=== PATIENT | female | born 1945 | race Caucasian/White ===

== ENCOUNTER → 2019-05-16 14:17 | Outpatient (BNVA) | payer MEDICARE, BC, SELFPAY | PROVIDERS: Family Provider Family Medicine; PCP Family Medicine; Visit Provider Family Medicine | DX: N39.0 Urinary tract infection, site not specified (principal); I10 Essential (primary) hypertension; M54.10 Radiculopathy, site unspecified | CPT/HCPCS: 81003 ==

== ENCOUNTER → 2019-08-15 14:34 | Outpatient (BNVA) | payer MEDICARE, BC, SELFPAY | PROVIDERS: Family Provider Family Medicine; PCP Family Medicine; Visit Provider Family Medicine | DX: I10 Essential (primary) hypertension (principal); E78.2 Mixed hyperlipidemia; M48.061 Spinal stenosis, lumbar region without neurogenic claudication; M54.16 Radiculopathy, lumbar region; L82.1 Other seborrheic keratosis; M79.89 Other specified soft tissue disorders | CPT/HCPCS: 80053; 80061; 85025 ==

== ENCOUNTER → 2019-12-12 13:19 | Outpatient (BNVA) | payer MEDICARE, BC, SELFPAY | PROVIDERS: Family Provider Family Medicine; PCP Family Medicine; Visit Provider Family Medicine | DX: N39.0 Urinary tract infection, site not specified (principal) | CPT/HCPCS: 81000; 87086 ==

== ENCOUNTER → 2020-04-15 11:42 | Outpatient (BNVA) | payer MEDICARE, BC, SELFPAY | PROVIDERS: Family Provider Family Medicine; PCP Family Medicine; Visit Provider Internal Medicine Cardiovascular Disease | DX: I10 Essential (primary) hypertension (principal); R06.02 Shortness of breath; E78.2 Mixed hyperlipidemia; I25.10 Atherosclerotic heart disease of native coronary artery without angina pectoris; M79.89 Other specified soft tissue disorders; G47.33 Obstructive sleep apnea (adult) (pediatric) | CPT/HCPCS: 80048; 80061 ==

== ENCOUNTER 2020-06-21 02:30 | Inpatient (IN) | payer MEDICARE, BC, SELFPAY ==
[2020-06-21] VITALS (10 sets, daily range): BP systolic 115–136; BP diastolic 53–79; PULSE 70–105; RESP 16–20; TEMP 36.6–37.2; O2SAT 92–96; BMI 38.1
--- NOTE | 2020-06-21 03:37 | ECG_ITS ---
[facility] ED Test Date: 2020-06-21 Pat Name: Delores Keyes Department: Room: 253 Gender: Female Shredder Operator: : 1945 Requested By: Zak Kulkarni Order Number: [id number] Juni MD: Tamra Conway M.D. Measurements Intervals [place] Rate: 89 P: 37 MT: 159 QRS: 17 QRSD: 109 T: 261 QT: 351 QTc: 427 Interpretive Statements SINUS RHYTHM MODERATE T-WAVE ABNORMALITY, CONSIDER INFERIOR ISCHEMIA [-0.1+ mV T WAVE IN II/aVF] Compared to ECG 03/05/2017 14:25:13 Sinus tachycardia no longer present Left-axis deviation no longer present Myocardial infarct finding no longer present T-wave abnormality still present Possible ischemia still present Electronically Signed On 06-23-2020 10:56:07 CDT by Tamra Conway M.D. [id number]
--- NOTE | 2020-06-21 03:38 | P.HP_ITS ---
Providers/Chief Complaint Admitting Physician: Zak Kulkarni MD Primary Care Provider: Wendy Otero MD Chief Complaint: Lower GI Bleed History of Present Illness Delores Keyes is a 75 year old female who has history of hemorrhoids, diverticulosis presented today after chief complaint of emesis and bright bleed per rectum. Patient is stating that yesterday she went to nutrition clinic where she had corn and cake and then afterwards went for grocery shopping, doing shopping she had abdominal cramps and sensation that she had to go to the bathroom and felt nauseous. She experienced 1 episode of emesis, projectile, she was feeling sick to her stomach, had 1 bowel movement which was fresh bleed per rectum, she updated her daughter about her condition, and then slept for ab out 3 hours because she was feeling very tired and lethargic. When she woke up she went to the kitchen and started working on her curtains while waiting to fix ice cream and soda for herself. Again, she experienced abdominal cramps and had a large bowel movement while standing in the kitchen and this time blood clots came out, they were about 3 cm long, she called her daughter who sent her to the hospital for further evaluation. She went to [place] [facility], she was hypertensive and tachycardic in upper 90s, afebrile, did not experience recurrence of symptoms, hemoglobin 10, do not have BMP or CT abdomen pelvis because they could not get creatinine level on her She was transferred to our facility for overnight monitoring and possible colonoscopy, at the time of my evaluation she was able to mention above HPI Review of Systems Const: Reports: chills, body aches and fatigue; Denies: fever(s) Eyes: Denies: change in vision ENMT: Denies: throat pain Card: Denies: chest pain Resp: Denies: dyspnea GI: Reports: abdominal pain, nausea, vomiting, diarrhea and hematochezia : Denies: flank pain Musc: Denies: neck pain Skin/Breast: Denies: rash Neuro: Denies: headache(s) Psych: Denies: anxiety Endo: Denies: polyuria Kennedy/Lymph: Denies: easy bruising All/Imm: Denies: urticaria Medications/Allergies Home Medications Medication Instructions Recorded Confirmed Last Taken Type potassium gluconate 595 mg (99 mg) 595 mg PO DAILY tab 01/15/20 03/04/21 Unknown History tablet furosemide 40 mg tablet 20 mg PO QAM PRN #90 tab 09/19/19 05/09/20 Unknown Rx triamterene 37.5 1 cap PO DAILY #90 cap 03/11/20 05/09/20 Unknown Rx mg-hydrochlorothiazide 25 mg capsule losartan 100 mg tablet 100 mg PO DAILY 90 Days #90 tab 05/05/20 05/09/20 Unknown Rx rosuvastatin 20 mg tablet 20 mg PO DAILY #90 tab 05/09/20 05/09/20 Unknown Rx sulfamethoxazole 800 1 tab PO BID #60 tab 05/09/20 05/09/20 Unknown Rx mg-trimethoprim 160 mg tablet diclofenac sodium 75 mg 75 mg PO BID #60 tab 06/13/20 Unknown Rx tablet,delayed release docusate sodium 100 mg capsule 100 mg PO DAILY 90 Days #100 cap 06/13/20 Unknown Rx metformin 500 mg tablet,extended 500 mg PO BID 90 Days #180 tab 06/13/20 Unknown Rx release 24 hr nifedipine 90 mg tablet,extended 90 mg PO DAILY #90 tab 06/13/20 Unknown Rx release 24 hr nitroglycerin 6.5 mg 6.5 mg PO TID #270 cap 06/13/20 Unknown Rx capsule,extended release Allergies Allergy/AdvReac Type Severity Reaction Status Date / Time acetaminophen [From Haugen] Allergy UNKNOWN Verified 05/09/20 10:28 atenolol Allergy UNKNOWN Verified 05/09/20 10:28 atorvastatin [From Lipitor] Allergy UNKNOWN Verified 05/09/20 10:28 ciprofloxacin [From Cipro] Allergy UNKNOWN Verified 05/09/20 10:28 diphenhydramine Allergy UNKNOWN Verified 05/09/20 10:28 [From Benadryl] hydralazine Allergy UNKNOWN Verified 05/09/20 10:28 hydrocodone [From Haugen] Allergy UNKNOWN Verified 05/09/20 10:28 Iodinated Contrast Media Allergy UNKNOWN Verified 05/09/20 10:28 isosorbide [From Imdur] Allergy UNKNOWN Verified 05/09/20 10:28 levofloxacin [From Levaquin] Allergy UNKNOWN Verified 05/09/20 10:28 nystatin [From Mycolog II] Allergy UNKNOWN Verified 05/09/20 10:28 quinapril [From Accupril] Allergy UNKNOWN Verified 05/09/20 10:28 triamcinolone Allergy UNKNOWN Verified 05/09/20 10:28 [From Mycolog II] PFSH Acute PFSH: Medical History ASHD (arteriosclerotic heart disease) COPD (chronic obstructive pulmonary disease) Diabetes Esophagitis Essential hypertension, benign Hyperlipidemia Hypertension Leg swelling Osteoarthritis Shortness of breath Sleep apnea Spinal stenosis of lumbar region with radiculopathy Surgical History H/O hemorrhoidectomy H/O: hysterectomy H/O: knee surgery History of appendectomy History of bladder surgery History of non-cataract eye surgery History of rectal surgery Hx of cataract surgery Hx of cholecystectomy Hx of hernia repair Hx of repair of rotator cuff Family History Mother CAD (coronary artery disease) Dementia Diabetes Stroke Father Cancer Brother Chronic kidney disease (CKD) Denies family history of Clotting disorder Suicide Anesthesia complication Bleeding disorder Lung disease Social History Second hand smoke exposure: No Alcohol intake: never Desire information about alcohol rehabilitation?: No Counseling given: No Desire information about substance/drug rehabilitation?: No Counseling given: No Physical Exam Narrative: EXAM NARRATIVE: Very pleasant and cooperative female who is laying comfortably in her bed S1, S2 no tachycardia or signs of heart failure Morbid obesity Clinically does not look dehydrated or fluid overloaded Low symmetry no edema gangrene ulcer Abdomen soft nontender no signs of peritonitis Bilateral breath sounds no audible wheezing stridor or rhonchi EOMI, PERRLA No neurological deficit No joint swelling, nonpitting lower extremity edema A&P Assessment and plan (1) Lower GI bleed: Status: Acute (2) Hematochezia: Status: Acute (3) Radiculopathy of leg: Status: Acute (4) Sleep apnea: Status: Acute Qualifiers: Sleep apnea type: obstructive Qualified Code(s): G47.33 - Obstructive sleep apnea (adult) (pediatric) Additional A&P Information Bright bleed per rectum/hematochezia Hemoglobin 10, previous hemoglobin 14 reported August 25 Will obtain CBC and BMP on stat basis, diverticular versus hemorrhoidal bleed Abdomen soft no signs of peritonitis, will check lactic acid, mild leukocytosis noted on CBC from outside record N.p.o. H&H every 6 hours Keep her on maintenance fluid Will need colonoscopy, patient endorsing history of hemorrhoids and diverticulosis, no history of cancer She is not on any anticoagulants, no history of alcohol liver cirrhosis, hepatitis or liver cirrhosis Kindly consult general surgery in the morning for colonoscopy, no urgent indication overnight Obstructive sleep Overnight out of CPAP Hypertension: Currently hypotensive, I will hold losartan hydrochlorothiazide unless I know her kidney function level, continue nifedipine Clear liquid diet SCDs for DVT prophylaxis Full code Attestations Medical Necessity Statement*: Anticipating discharge in less than 48 hours overnight monitoring needed for hematochezia most likely diverticular/hemorrhoid bleed Time Spent in Patient Care: 40mins Coding Level of Care Code Acute Clinical Laboratory Science Professor for Jessica Rodriguez Diagnoses Lower GI bleed K92.2 Hematochezia K92.1 Radiculopathy of leg M54.10 Sleep apnea G47.33 Sleep apnea type: obstructive
[2020-06-21] MEDS: sodium chloride 0.9% 1,000 ML 30 ML IV (05:03)
[2020-06-21] MEDS: pantoprazole 40 mg SDV IVP ×2 (05:07→17:14)
[2020-06-21 08:48] LABS: Basophils % 0.4 %; Eosinophils % 0.3 %; Hematocrit 25.6 % (37.0-47.0); Hemoglobin 8.1 g/dL (11.5-15.3); Lymphocytes % 17.4 %; Mean Corpuscular HGB Conc 31.6 g/dL (30.0-36.0); Mean Corpuscular Hemoglobin 29.1 pg (28.0-34.0); Mean Corpuscular Volume 92.1 fL (81-99); Mean Platelet Volume 9.5 fL (7.4-10.4); Monocytes # 0.5 10^3/uL (0.2-0.9); Monocytes % 4.4 %; Neutrophils % 77.1 %; Nucleated Red Blood Cells % 0 %; Platelet Count 342 10^3/cmm (130-400); Red Blood Count 2.78 10^6/uL (4.1-5.3); Red Cell Distribution Width 13.1 % (12.1-15.1); White Blood Count 11.4 10^3/uL (4.0-10.0)
--- NOTE | 2020-06-21 08:59 | CT_ITS ---
WS: [id number] CT scan of the abdomen and pelvis with Oral . Additional two-dimensional coronal and sagittal reconst ruction was performed. 06/21/2020 Clinical Data: BRBPR Comparison: CT abdomen and pelvis, 12/13/2015. DLP: 1669.[address] scans at [facility] use at least one of these dose optimization techniques: automat ed exposure control; mA and/or kV adjustment per patient size (includes targeted exams where dose is matched to clinical indication); or iterative reconstruction. Findings: The lower lungs show no nodules, masses or effusions. The liver, spleen, adrenal glands and pancreas are normal. There are clips in the gallbladder fossa f rom a cholecystectomy. The kidneys show no cysts, masses, hydronephrosis or renal calculi. The abdominal aorta is normal in size with calcification in the wall.. No appendicitis or diverticulitis is seen. Oral contrast is in the stomach and small bowel and there is no bowel dilatation. There is an umbilical hernia which contains small bowel. The orifice of the h ernia 6.3 cm. The bladder is unremarkable. The uterus is absent. No inguinal hernia is seen. The bones of the lower thorax, lumbar spine, pelvis, and hips show degenerative change of the lower t horacic and all the lumbar vertebral bodies. CT/CT abdomen pelvis wo con [id number] Impression: 1. Umbilical hernia containing small bowel with no evidence of strangulation. 2. Negative for acute intra-abdominal or pelvic abnormalities.
[2020-06-21 09:02] LABS: Anion Gap 13.5 (5-19); Blood Urea Nitrogen 18 mg/dL (8-23); Calcium 8.4 mg/dL (8.5-10.5); Carbon Dioxide 27 mmol/L (22-29); Chloride 103 mmol/L (98-107); Glucose 197 mg/dL (65-115); Lactate (Lactic Acid level) 2.7 mmol/L (0.5-2.2); Osmolality Calculated 297 mOsm/kg (285-295); Potassium 3.5 mmol/L (3.5-5.1); Sodium 140 mmol/L (136-145)
[2020-06-21] MEDS: barium sulfate 450 mL Oral Susp PO (09:18)
--- NOTE | 2020-06-21 09:27 | PC.PHAR ---
PT STATES SHE TAKES CARE OF HER OWN MEDICATIONS-PT BROUGHT IN A MED LIST SOMETHINGS PT HAD ON LIST DIDNT MATCH WHAT HAD BEEN FILLED AND WHAT THE PT VERIFIED-PT STATES SHE HAS A QVAR INHALER-EXT MED HISTORY DOESNT SHOW THIS MEDICATION-EXT MED HISTORY SHOWS LASIX LAST FILLED 40MG PO QAM PRN-PT STATES SHE ONLY TAKES 1/2 (20MG) TAB QAM PRN-EXT MED HISTORY SHOWS LOSARTAN LAST FILLED ON 06/02/20 30D/S 100MG PO DAILY-PT STATES SHE TAKES 50MG QAM PRN-EXT MED HISTORY SHOWS METFORMIN ER 500MG LAST FILLED ON 03/05/20 90D/S 500MG PO BID-PTS LIST BROUGHT IN HAS 1000MG TAKES 500MG BID-BUT PT STATES SHE TAKES WHAT PILL WAS FILLED LAST AND TAKES A HALF OF THAT TAB SO 250MG BID-PT STATES SHE TAKES BACTRIM DS PRN-EXT MED HISTORY SHOWS LAST FILLED ON 05/09/20 30D/S
--- NOTE | 2020-06-21 10:40 | P.PN_ITS ---
Subjective Subjective: Interval history: Patient was seen and examined this morning deny any abdominal pain, nausea, vomiting,fever. Currently tolerating CLD. Her other vitals and labs have been review. Vitals/I&O/Wt Last Vital Signs Temp 97.9 F 06/21/20 07:24 Pulse 80 06/21/20 07:24 Resp 17 06/21/20 07:24 BP 115/74 06/21/20 07:24 Pulse Ox 92 06/21/20 07:24 06/20/20 06/21/20 06/21/20 22:59 06:59 14:59 Intake Total 500 / 500 Output Total 300 / 300 Balance -300 / -300 500 / 500 Weight last 48 hrs Weight 91.535 kg Physical Exam Const: COMMON NORMALS: patient oriented x3 HENMT: COMMON NORMALS: normocephalic and atraumatic HEAD & SCALP: normocephalic and atraumatic Chest: CHEST: Yes Symmetrical chest wall rise Resp: COMMON NORMALS: clear to auscultation bilaterally EFFORT & INSPECTION: Yes symmetric chest movement AUSCULTATION: clear to auscultation bilaterally Cardio: COMMON NORMALS: regular rate, regular rhythm, S1 normal heart sound present, S2 normal heart sound present, No gallops present (Cardio), No murmurs present (Cardio), No rub (Cardio) and Peripheral pulses 2+ throughout RATE: regular rate RHYTHM: regular rhythm HEART SOUNDS: S1 normal heart sound present and S2 normal heart sound present PERIPHERAL PULSES: Peripheral pulses 2+ throughout GI: COMMON NORMALS: Normal to inspection, nondistended, normoactive bowel sounds present, Soft to palpation, non-tender, No hepatosplenomegaly present and no masses AUSCULTATION: Yes normoactive bowel sounds PALPATION: Yes Soft to palpation and Yes No hepatosplenomegaly present RECTAL EXAM: deferred Extremity: COMMON NORMALS: no clubbing, cyanosis or edema and no pedal edema Neuro: COMMON NORMALS: patient oriented x3 Data : 06/21/20 17:25 06/21/20 08:28 A&P Assessment and plan (1) Lower GI bleed: She was admitted with chief complaint of bright red blood per rectum started yesterday. Currently on CLD Protonix 40 mg IV every 12 hours I.V Hydration Monitor CBC Q12 H DAILY C.T abdomen and Pelvis : Negative for acute intra-abdominal or pelvic abnormalities. Transfusion2 U PRBC Monitor CBC Status: Acute (2) Hematochezia: Status: Acute (3) Radiculopathy of leg: Status: Acute (4) Sleep apnea: Status: Acute Qualifiers: Sleep apnea type: obstructive Qualified Code(s): G47.33 - Obstructive sleep apnea (adult) (pediatric) Additional A&P Information Bright bleed per rectum/hematochezia Hemoglobin 10, previous hemoglobin 14 reported August 25 Will obtain CBC and BMP on stat basis, diverticular versus hemorrhoidal bleed Abdomen soft no signs of peritonitis, will check lactic acid, mild leukocytosis noted on CBC from outside record N.p.o. H&H every 6 hours Keep her on maintenance fluid Will need colonoscopy, patient endorsing history of hemorrhoids and diverticulosis, no history of cancer She is not on any anticoagulants, no history of alcohol liver cirrhosis, hepatitis or liver cirrhosis Kindly consult general surgery in the morning for colonoscopy, no urgent indication overnight Obstructive sleep Overnight out of CPAP Hypertension: Currently hypotensive, I will hold losartan hydrochlorothiazide unless I know her kidney function level, continue nifedipine Clear liquid diet SCDs for DVT prophylaxis Full code Attestations Medical Necessity Statement*: Patient needs to be in hospital for the management of G.I Bleed. Coding Level of Care Code Acute Audio Visual Arts Director for Jessica Rodriguez Diagnoses Lower GI bleed K92.2 Hematochezia K92.1 Radiculopathy of leg M54.10 Sleep apnea G47.33 Sleep apnea type: obstructive
[2020-06-21 11:29] LABS: Glucose Point of Care 117 mg/dL (70-110)
[2020-06-21] MEDS: dextrose 5%-sod chloride 0.45% 1,000 ML 50 ML IV (12:11)
--- NOTE | 2020-06-21 12:44 | PC.RESP ---
Pulmonary Rehab information sent to patient
--- NOTE | 2020-06-21 13:14 | PC.CHAP ---
Pastoral Care Encounter/Spiritual Assessment Type of Contact [] Declined executive vice president and chief operating officer visit [] Patient/Family/Request visit [] Outpatient visit [] Follow-up visit [] Physician referral [] Code/Alert [] Routine visit [] Staff referral [] Actively dying [] Patient sleeping [] Family support [] [xx] Out of room [] Palliative care [] [] Receiving care in room [] Pre-surgical visit [] Trauma [] Long length of stay [] ICU visit [xx] Other: Patient just removed to get CT scan. Will be gone awhile. Relational/Emotional Strength [] Patient feels connected with others/family/visitors/staff [] Distress [] Loneliness/isolation [] Abandonment Spirituality of Patient [] Person of Jennifer [] Attends Druze of their Jennifer [] Believes in Prayer [] Reads Bible or Mandaeism materials [] There are Spiritual issues to be addressed Transportation Modeler Interventions [] Prayer [] Active listening [] Non-anxious presence [] Spiritual/emotional support [] Crisis/trauma care [] Spiritual counseling [] Bereavement support [] Provided bereavement packet [] Provided Bible/devotional materials [] Provided toy/stuffed animal, coloring book to patient or family member [] Provided Communion [] Anointing/[place] [] Salvation [] Completed spiritual assessment [] Other: Impact on Illness or Injury [] Angry [] Fearful [] Anxious [] Often cries [] Exhaustion [] Unable to work [] Unable to attend tenriism [] Unable to walk/stand [] Unable to read [] Unable to drive [] Unable to eat/drink [] Unable to sleep [] Unable to be with family [] Patient intubated [] Other: Summary Follow up needed Time spent with patient
[2020-06-21 16:47] LABS: Glucose Point of Care 143 mg/dL (70-110)
[2020-06-21] MEDS: NIFEdipine ER (24 hr) 30 mg Tablet 90 MG PO (17:12)
[2020-06-21 17:33] LABS: Basophils % 0.4 %; Eosinophils # 0.1 10^3/uL (0.0-0.8); Eosinophils % 0.4 %; Hematocrit 23.4 % (37.0-47.0); Hemoglobin 7.5 g/dL (11.5-15.3); Lymphocytes # 2.3 10^3/uL (0.8-4.8); Lymphocytes % 20.5 %; Mean Corpuscular HGB Conc 32.1 g/dL (30.0-36.0); Mean Corpuscular Hemoglobin 29.3 pg (28.0-34.0); Mean Corpuscular Volume 91.4 fL (81-99); Mean Platelet Volume 9.3 fL (7.4-10.4); Monocytes # 0.6 10^3/uL (0.2-0.9); Monocytes % 4.9 %; Neutrophils % 73.4 %; Nucleated Red Blood Cells % 0 %; Platelet Count 327 10^3/cmm (130-400); Red Blood Count 2.56 10^6/uL (4.1-5.3); Red Cell Distribution Width 13.2 % (12.1-15.1); White Blood Count 11.3 10^3/uL (4.0-10.0)
--- NOTE | 2020-06-21 18:21 | PC.NURSE ---
pt had a moderate bowel movement today. it was bloody. pt reported no pain and no N/V
[2020-06-21 21:02] LABS: Glucose Point of Care 154 mg/dL (70-110)
[2020-06-22] VITALS (19 sets, daily range): BP systolic 107–140; BP diastolic 53–83; PULSE 71–90; RESP 16–19; TEMP 36.4–37.4; O2SAT 91–97
[2020-06-22] MEDS: sodium chloride 0.9% (100 ml) 100 ML 150 ML (01:47)
[2020-06-22] MEDS: pantoprazole 40 mg SDV IVP ×2 (03:18→15:59)
[2020-06-22] MEDS: sodium chloride 0.9% (100 ml) 100 ML (03:20)
[2020-06-22 06:43] LABS: Glucose Point of Care 127 mg/dL (70-110)
[2020-06-22 06:58] LABS: Hematocrit 30.2 % (37.0-47.0); Hemoglobin 9.6 g/dL (11.5-15.3); Mean Corpuscular HGB Conc 31.8 g/dL (30.0-36.0); Mean Corpuscular Hemoglobin 29.4 pg (28.0-34.0); Mean Corpuscular Volume 92.4 fL (81-99); Mean Platelet Volume 9.5 fL (7.4-10.4); Platelet Count 306 10^3/cmm (130-400); Red Blood Count 3.27 10^6/uL (4.1-5.3); Red Cell Distribution Width 13.4 % (12.1-15.1); White Blood Count 11.4 10^3/uL (4.0-10.0)
[2020-06-22 07:40] LABS: Anion Gap 13.3 (5-19); Blood Urea Nitrogen 14 mg/dL (8-23); Calcium 8.3 mg/dL (8.5-10.5); Carbon Dioxide 23 mmol/L (22-29); Chloride 106 mmol/L (98-107); Ferritin 131 ng/mL (15-150); Glucose 113 mg/dL (65-115); Iron 165 ug/dL (37-145); Osmolality Calculated 289 mOsm/kg (285-295); Percent Saturation 70.2 % (20-50); Potassium 3.3 mmol/L (3.5-5.1); Sodium 139 mmol/L (136-145); Total Iron Binding Capacity 235 mcg/dl; Transferrin 198 mg/dL (200-360); Unsaturated Iron Binding 70 ug/dL (112-347)
[2020-06-22] MEDS: lidocaine 1% 5 ML in potassium chloride premix 100 ML 50 ML IV (09:19)
--- NOTE | 2020-06-22 10:30 | PC.CHAP ---
Pastoral Care Encounter/Spiritual Assessment Type of Contact [] Declined dental instructor visit [] Patient/Family/Request visit [] Outpatient visit [x] Follow-up visit [] Physician referral [] Code/Alert [] Routine visit [] Staff referral [] Actively dying [] Patient sleeping [] Family support [] [] Out of room [] Palliative care [] [] Receiving care in room [] Pre-surgical visit [] Trauma [] Long length of stay [] ICU visit [] Other: Relational/Emotional Strength [x] Patient feels connected with others/family/visitors/staff [] Distress [] Loneliness/isolation [] Abandonment Spirituality of Patient [x] Person of Jennifer [x] Attends Roman Catholic of their Jennifer [x] Believes in Prayer [x] Reads Bible or Taoism materials [] There are Spiritual issues to be addressed Chemical Engineering Technician Interventions [x] Prayer [x] Active listening [x] Non-anxious presence [x] Spiritual/emotional support [] Crisis/trauma care [] Spiritual counseling [] Bereavement support [] Provided bereavement packet [] Provided Bible/devotional materials [] Provided toy/stuffed animal, coloring book to patient or family member [] Provided Communion [] Anointing/[place] [] Salvation [x] Completed spiritual assessment [] Other: Impact on Illness or Injury [] Angry [] Fearful [] Anxious [] Often cries [] Exhaustion [] Unable to work [] Unable to attend holiness [] Unable to walk/stand [] Unable to read [] Unable to drive [] Unable to eat/drink [] Unable to sleep [] Unable to be with family [] Patient intubated [] Other: Summary Son was in room when dental instructor arrived. He stated he has not been staying but his sister has. Both expressed deep jennifer and requested prayer. Pt not expecting to go home for a little while. Medical staff still attempting to address issues which resulted in her admission. Time spent with patient 15m
[2020-06-22 10:39] LABS: Absolute Neutrophil 8.9 10^3/cmm (1.4-6.5); Absolute Segmented Neutrophil 8.7 10/cmm (1.6-7.1); Band Neutrophils Absolute 0.2 10^3/cmm (0.0-1.2); Eosinophils 0 %; Lymphocytes 22 %; Lymphocytes Absolute 2.5 10^3/cmm (1.2-3.4); Platelet Estimate Normal (Normal); Segmented Neutrophils 76 %; Total Cells Counted 100 (0-100)
[2020-06-22 10:43] LABS: Glucose Point of Care 176 mg/dL (70-110)
[2020-06-22] MEDS: ondansetron 2 mg/ML SDV 2 mL 4 MG IVP (10:47)
--- NOTE | 2020-06-22 12:01 | PM.PN ---
Subjective Subjective: Interval history: Patient was seen and examined this morning deny any abdominal pain, vomiting,fever. She was nauseous today in am. received I.V Zofran and responded well. Currently tolerating CLD.No BM today Her other vitals and labs have been reviewed. Vitals/I&O/Wt Last Vital Signs Temp 98.5 F 06/22/20 11:38 Pulse 75 06/22/20 11:38 Resp 18 06/22/20 11:38 BP 129/75 06/22/20 11:38 Pulse Ox 91 06/22/20 11:38 06/21/20 06/22/20 06/22/20 22:59 06:59 14:59 Intake Total 500 / 1500 1020 / 2520 1442.5 / 1442.5 Output Total 600 / 900 Balance 500 / 1200 420 / 1620 1442.5 / 1442.5 Weight last 48 hrs Weight 96.026 kg Weight 91.535 kg Physical Exam Const: COMMON NORMALS: patient oriented x3 HENMT: COMMON NORMALS: normocephalic and atraumatic HEAD & SCALP: normocephalic and atraumatic Chest: CHEST: Yes Symmetrical chest wall rise Resp: COMMON NORMALS: clear to auscultation bilaterally EFFORT & INSPECTION: Yes symmetric chest movement AUSCULTATION: clear to auscultation bilaterally Cardio: COMMON NORMALS: regular rate, regular rhythm, S1 normal heart sound present, S2 normal heart sound present, No gallops present (Cardio), No murmurs present (Cardio), No rub (Cardio) and Peripheral pulses 2+ throughout RATE: regular rate RHYTHM: regular rhythm HEART SOUNDS: S1 normal heart sound present and S2 normal heart sound present PERIPHERAL PULSES: Peripheral pulses 2+ throughout GI: COMMON NORMALS: Normal to inspection, nondistended, normoactive bowel sounds present, Soft to palpation, non-tender, No hepatosplenomegaly present and no masses AUSCULTATION: Yes normoactive bowel sounds PALPATION: Yes Soft to palpation and Yes No hepatosplenomegaly present RECTAL EXAM: deferred Extremity: COMMON NORMALS: no clubbing, cyanosis or edema and no pedal edema Neuro: COMMON NORMALS: patient oriented x3 Data : 06/22/20 06:34 06/22/20 06:34 A&P Assessment and plan (1) Lower GI bleed: She was admitted with chief complaint of bright red blood per rectum started yesterday. Currently on CLD Protonix 40 mg IV every 12 hours I.V Hydration Monitor CBC Q12 H DAILY C.T abdomen and Pelvis : Negative for acute intra-abdominal or pelvic abnormalities. S/P Transfusion2 U PRBC : H/H 9.6/30.2 Monitor CBC Stool H.Pylori Screen Patient takes NSAID at home ( Voltaren ).Has been asked to stop. Status: Acute (2) Hematochezia: Status: Acute (3) Radiculopathy of leg: Status: Acute (4) Sleep apnea: Status: Acute Qualifiers: Sleep apnea type: obstructive Qualified Code(s): G47.33 - Obstructive sleep apnea (adult) (pediatric) Additional A&P Information Bright bleed per rectum/hematochezia Hemoglobin 10, previous hemoglobin 14 reported August 25 Will obtain CBC and BMP on stat basis, diverticular versus hemorrhoidal bleed Abdomen soft no signs of peritonitis, will check lactic acid, mild leukocytosis noted on CBC from outside record N.p.o. H&H every 6 hours Keep her on maintenance fluid Will need colonoscopy, patient endorsing history of hemorrhoids and diverticulosis, no history of cancer She is not on any anticoagulants, no history of alcohol liver cirrhosis, hepatitis or liver cirrhosis Kindly consult general surgery in the morning for colonoscopy, no urgent indication overnight Obstructive sleep Overnight out of CPAP Hypertension: Currently hypotensive, I will hold losartan hydrochlorothiazide unless I know her kidney function level, continue nifedipine Clear liquid diet SCDs for DVT prophylaxis Full code Attestations Medical Necessity Statement*: Patient needs to be in hospital for the management of G.I Bleed. Coding Level of Care Code Acute Marble Worker for [facility] Fwd Diagnoses Lower GI bleed K92.2 Hematochezia K92.1 Radiculopathy of leg M54.10 Sleep apnea G47.33 Sleep apnea type: obstructive
[2020-06-22 16:54] LABS: Glucose Point of Care 80 mg/dL (70-110)
[2020-06-22 17:00] LABS: Basophils # 0.1 10^3/uL (0.0-0.1); Basophils % 0.4 %; Eosinophils # 0.2 10^3/uL (0.0-0.8); Eosinophils % 1.5 %; Hematocrit 32.2 % (37.0-47.0); Hemoglobin 10.1 g/dL (11.5-15.3); Lymphocytes # 2.5 10^3/uL (0.8-4.8); Mean Corpuscular HGB Conc 31.4 g/dL (30.0-36.0); Mean Corpuscular Hemoglobin 29.1 pg (28.0-34.0); Mean Corpuscular Volume 92.8 fL (81-99); Monocytes # 0.7 10^3/uL (0.2-0.9); Monocytes % 6.3 %; Neutrophils # 7.75 10^3/uL (1.8-7.7); Neutrophils % 69.2 %; Nucleated Red Blood Cells % 0 %; Platelet Count 235 10^3/cmm (130-400); Red Blood Count 3.47 10^6/uL (4.1-5.3); Red Cell Distribution Width 13.8 % (12.1-15.1); White Blood Count 11.2 10^3/uL (4.0-10.0)
[2020-06-22 20:50] LABS: Glucose Point of Care 156 mg/dL (70-110)
[2020-06-23] MEDS: dextrose 5%-sod chloride 0.45% 1,000 ML 50 ML IV ×2 (00:10→15:06)
[2020-06-23 03:57] VITALS: BP 109/63; PULSE 75; RESP 18; TEMP 36.9; O2SAT 96
[2020-06-23] MEDS: pantoprazole 40 mg SDV IVP ×2 (05:13→15:17)
[2020-06-23 06:28] LABS: Glucose Point of Care 126 mg/dL (70-110)
[2020-06-23 06:58] LABS: Hematocrit 28.6 % (37.0-47.0); Hemoglobin 8.8 g/dL (11.5-15.3); Mean Corpuscular HGB Conc 30.8 g/dL (30.0-36.0); Mean Corpuscular Hemoglobin 29.4 pg (28.0-34.0); Mean Corpuscular Volume 95.7 fL (81-99); Mean Platelet Volume 8.9 fL (7.4-10.4); Platelet Count 301 10^3/cmm (130-400); Red Blood Count 2.99 10^6/uL (4.1-5.3); Red Cell Distribution Width 13.8 % (12.1-15.1); White Blood Count 8.8 10^3/uL (4.0-10.0)
[2020-06-23 07:20] VITALS: BP 127/70; PULSE 78; RESP 18; TEMP 36.9; O2SAT 94
[2020-06-23 07:24] LABS: Blood Urea Nitrogen 6 mg/dL (8-23); Calcium 8.2 mg/dL (8.5-10.5); Carbon Dioxide 26 mmol/L (22-29); Chloride 105 mmol/L (98-107); Glucose 108 mg/dL (65-115); Osmolality Calculated 286 mOsm/kg (285-295); Sodium 139 mmol/L (136-145)
[2020-06-23 07:31] LABS: Anion Gap 11.5 (5-19); Potassium 3.5 mmol/L (3.5-5.1)
[2020-06-23 08:12] LABS: Absolute Segmented Neutrophil 5.5 10/cmm (1.6-7.1); Band Neutrophils Absolute 0.1 10^3/cmm (0.0-1.2); Eosinophils 0 %; Lymphocytes 34 %; Monocytes Absolute 0.2 10^3/cmm (0.1-0.6); Segmented Neutrophils 63 %; Total Cells Counted 100 (0-100)
[2020-06-23 08:13] LABS: Absolute Neutrophil 5.6 10^3/cmm (1.4-6.5); Anisocytosis 1+; Platelet Estimate Normal (Normal); Poikilocytosis Trace
[2020-06-23 11:00] LABS: Glucose Point of Care 149 mg/dL (70-110)
[2020-06-23 11:24] VITALS: BP 127/70; PULSE 75; RESP 18; TEMP 37.2; O2SAT 97
[2020-06-23] MEDS: ondansetron 2 mg/ML SDV 2 mL 4 MG IVP (12:43)
--- NOTE | 2020-06-23 13:49 | PM.CONSULT ---
Providers/Reason For Consult Consulting Physican/Specialty*: Marco Vasques MD Reason for Consult*: Bleeding per rectum Requesting Physcian: Dr. Peña Attending Physician: Arnaud Peña MD Primary Care Provider: Wendy Otero MD History of Present Illness History of Present Illness Chief Complaint: History of present illness: Ms Delores Keyes is a 75 year old female admitted to the hospitalist service with history of emesis and bleeding per rectum. Patient reports that she had history of hemorrhoids and diverticulosis of the sigmoid colon. Denies any hematemesis, she did experience abdominal cramps and reports that she had a large bowel movement while standing in the kitchen and had blood clots. Patient undergone a CT scan of the abdomen and pelvis and reported ; 1. Umbilical hernia containing small bowel with no evidence of strangulation. 2. Negative for acute intra-abdominal or pelvic abnormalities. Patient had a previous colonoscopy 15 years ago, that was reported as normal patient never had an EGD before and she mentioned that she has been on NSAIDs for the past month or so to help her with her musculoskeletal pain. Which raises concern of peptic ulcer disease and potential etiology of her GI bleed. General surgery was consulted for further evaluation potential management Review of Systems General: Reports: 10 or more systems reviewed and unremarkable except in HPI and below Meds/Allergies Home Medications and Allergies Home Medications Medication Instructions Recorded Confirmed Last Taken Type potassium gluconate 595 mg (99 mg) 595 mg PO DAILY tab 03/22/19 06/21/20 Unknown History tablet triamterene 37.5 1 cap PO DAILY #90 cap 03/11/20 06/21/20 Unknown Rx mg-hydrochlorothiazide 25 mg capsule diclofenac sodium 75 mg 75 mg PO BID #60 tab 06/13/20 06/21/20 Unknown Rx tablet,delayed release nifedipine 90 mg tablet,extended 90 mg PO DAILY #90 tab 06/13/20 06/21/20 Unknown Rx release 24 hr nitroglycerin 6.5 mg 6.5 mg PO TID #270 cap 06/13/20 06/21/20 Unknown Rx capsule,extended release albuterol sulfate [ProAir HFA] 2 puff INHALATION Q6H PRN 06/21/20 06/21/20 Unknown History beclomethasone dipropionate [Qvar] See Rx Instructions .ROUTE .COMPLEX 06/21/20 06/21/20 Unknown History diphenhydramine-acetaminophen 1 tab PO PRN 06/21/20 06/21/20 Unknown History [Tylenol PM Extra Strength] docusate sodium 100 mg PO DAILY@06/21/20 06/21/20 Unknown History furosemide 20 mg PO QPM PRN 06/21/20 06/21/20 Unknown History gabapentin 200 mg PO BEDTIME PRN 06/21/20 06/21/20 Unknown History losartan 50 mg PO QAM PRN 06/21/20 06/21/20 Unknown History metformin 250 mg PO BID@08,06/21/20 06/21/20 Unknown History rosuvastatin 20 mg PO DAILY@06/21/20 06/21/20 Unknown History sennosides-docusate sodium 1 tab-cap PO QAM 06/21/20 06/21/20 Unknown History [Senna-S] sulfamethoxazole-trimethoprim 1 tab PO BID PRN 06/21/20 06/21/20 Unknown History Allergies Allergy/AdvReac Type Severity Reaction Status Date / Time acetaminophen [From [place]] Allergy UNKNOWN Verified 06/23/20 13:52 atenolol Allergy UNKNOWN Verified 06/23/20 13:52 atorvastatin [From Lipitor] Allergy UNKNOWN Verified 06/23/20 13:52 ciprofloxacin [From Cipro] Allergy UNKNOWN Verified 06/23/20 13:52 diphenhydramine Allergy UNKNOWN Verified 06/23/20 13:52 [From Benadryl] hydralazine Allergy UNKNOWN Verified 06/23/20 13:52 hydrocodone [From [place]] Allergy UNKNOWN Verified 06/23/20 13:52 Iodinated Contrast Media Allergy UNKNOWN Verified 06/23/20 13:52 isosorbide [From Imdur] Allergy UNKNOWN Verified 06/23/20 13:52 levofloxacin [From Levaquin] Allergy UNKNOWN Verified 06/23/20 13:52 nystatin [From Mycolog II] Allergy UNKNOWN Verified 06/23/20 13:52 quinapril [From Accupril] Allergy UNKNOWN Verified 06/23/20 13:52 triamcinolone Allergy UNKNOWN Verified 06/23/20 13:52 [From Mycolog II] Current Medications Current Medications Generic Name Dose Route Start Last Admin Trade Name Freq PRN Reason Stop Dose Admin Dextrose/Sodium Chloride 1,000 mls @ 50 mls/hr 06/21/20 11:30 06/23/20 00:10 Dextrose 5%-Sod Chloride 0.45% IV 50 mls/hr .Q20H MARIA DE JESUS Administration Insulin Aspart 0 unit 06/21/20 12:00 06/23/20 12:34 Insulin Aspart 100 Unit/1 Ml SUBCUT 2 unit WM&BEDTIME MARIA DE JESUS Administration Protocol Ondansetron HCl 4 mg 06/22/20 10:12 06/23/20 12:43 Ondansetron 2 Mg/Ml Sdv 2 Ml IVP 4 mg Q6H PRN Administration NAUSEA AND VOMITING Pantoprazole Sodium 40 mg 06/21/20 03:45 06/23/20 05:13 Pantoprazole 40 Mg Sdv IVP 40 mg Q12H MARIA DE JESUS Administration PFSH Acute PFSH: Medical History ASHD (arteriosclerotic heart disease) COPD (chronic obstructive pulmonary disease) Diabetes Esophagitis Essential hypertension, benign Hyperlipidemia Hypertension Leg swelling Osteoarthritis Shortness of breath Sleep apnea Spinal stenosis of lumbar region with radiculopathy Surgical History H/O hemorrhoidectomy H/O: hysterectomy H/O: knee surgery History of appendectomy History of bladder surgery History of non-cataract eye surgery History of rectal surgery Hx of cataract surgery Hx of cholecystectomy Hx of hernia repair Hx of repair of rotator cuff Family History Mother CAD (coronary artery disease) Dementia Diabetes Stroke Father Cancer Brother Chronic kidney disease (CKD) Denies family history of Clotting disorder Suicide Anesthesia complication Bleeding disorder Lung disease Social History Second hand smoke exposure: No Alcohol intake: never Desire information about alcohol rehabilitation?: No Counseling given: No Desire information about substance/drug rehabilitation?: No Counseling given: No Vitals/I&O/Wt Last Vital Signs Temp 98.9 F 06/23/20 11:24 Pulse 75 06/23/20 11:24 Resp 18 06/23/20 11:24 BP 127/70 06/23/20 11:24 Pulse Ox 97 06/23/20 11:24 06/22/20 06/23/2006/23/21 22:59 06:59 14:59 Intake Total 1349.167 / 3511.667 520.833 / 4032.500 720 / 720 Output Total 1500 / 1500 350 / 1850 450 / 450 Balance -150.833 / 2011.667 170.833 / 2182.500 270 / 270 Weight last 48 hrs Weight 211 lb 11.2 oz Physical Exam Narrative: EXAM NARRATIVE: Patient is conscious alert oriented X3 BMI 40 Head and neck examination PERRLA no masses no cervical lymphadenopathy no jaundice Cardiac examination audible S1-S2 no murmurs no gallops no arrhythmias Chest is clear bilateral,abscence of Rhonchi or wheezes,no surgical emphysema Abdomen nontender nondistended soft no organomegaly guarding or rigidity/no signs of peritonitis Morbidly obese A&P Assessment and plan (1) Hematochezia: Plan of care; After thorough history and physical examination and reviewing the chart and images of the CT scan of the abdomen and pelvis with my personal interpretation, plan to perform a diagnostic esophagogastroduodenoscopy and diagnostic colonoscopy with possible biopsy and possible polypectomy. I discussed with the patient in detail the risks,benefits,alternatives and indications.The risk of aspiration, bleeding, soft tissue injury, perforation of the stomach/esophagus/colon and other potential concomitant complications were explained to the patient in details also the potential need for Thoracotomy and or Laproscoy/Laparotomy to repair any related complications including but not limited to colectomy and or Closotomy. The patient understood this well and did agree to proceed. Rationale was carefully and clearly discussed with the patient.Appropriate informed consent have been reviewed and signed Verbal and written Instructions were given to the patient for colonoscopy prep Clinical encounter took place in the presence of patient's caring nurse Ms. Ureña We will plan to keep the patient n.p.o. after 3 AM tomorrow and start GoLZostelLY right away Status: Acute Consult Attestations Medical Necessity Statement: Patient requiring inpatient hospitalization for medical care and endoscopic intervention Time Spent in Patient Care: (>than 50% of time spent in counselling and/or direct pt care on unit). 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
--- NOTE | 2020-06-23 13:58 | PM.PN ---
Subjective Subjective: Interval history: Patient was seen and examined this morning deny any abdominal pain, nausea ,vomiting,fever. She had another episode of stool mixed with bright red blood. Currently hemodynamically stable. H&H is stable. Vitals/I&O/Wt Last Vital Signs Temp 98.9 F 06/23/20 11:24 Pulse 75 06/23/20 11:24 Resp 18 06/23/20 11:24 BP 127/70 06/23/20 11:24 Pulse Ox 97 06/23/20 11:24 06/22/20 06/23/20 06/23/20 22:59 06:59 14:59 Intake Total 1349.167 / 3511.667 520.833 / 4032.500 720 / 720 Output Total 1500 / 1500 350 / 1850 450 / 450 Balance -150.833 / 2011.667 170.833 / 2182.500 270 / 270 Weight last 48 hrs Weight 96.026 kg Physical Exam Const: COMMON NORMALS: patient oriented x3 HENMT: COMMON NORMALS: normocephalic and atraumatic HEAD & SCALP: normocephalic and atraumatic Chest: CHEST: Yes Symmetrical chest wall rise Resp: COMMON NORMALS: clear to auscultation bilaterally EFFORT & INSPECTION: Yes symmetric chest movement AUSCULTATION: clear to auscultation bilaterally Cardio: COMMON NORMALS: regular rate, regular rhythm, S1 normal heart sound present, S2 normal heart sound present, No gallops present (Cardio), No murmurs present (Cardio), No rub (Cardio) and Peripheral pulses 2+ throughout RATE: regular rate RHYTHM: regular rhythm HEART SOUNDS: S1 normal heart sound present and S2 normal heart sound present PERIPHERAL PULSES: Peripheral pulses 2+ throughout GI: COMMON NORMALS: Normal to inspection, nondistended, normoactive bowel sounds present, Soft to palpation, non-tender, No hepatosplenomegaly present and no masses AUSCULTATION: Yes normoactive bowel sounds PALPATION: Yes Soft to palpation and Yes No hepatosplenomegaly present RECTAL EXAM: deferred Extremity: COMMON NORMALS: no clubbing, cyanosis or edema and no pedal edema Neuro: COMMON NORMALS: patient oriented x3 Data : 06/23/20 06:36 06/23/20 06:36 A&P Assessment and plan (1) Lower GI bleed: She was admitted with chief complaint of bright red blood per rectum Currently on CLD. NPO after midnight for EGD and colonoscopy. Protonix 40 mg IV every 12 hours I.V Hydration C.T abdomen and Pelvis : Negative for acute intra-abdominal or pelvic abnormalities. S/P Transfusion2 U PRBC : Monitor CBC Stool H.Pylori Screen Patient takes NSAID at home ( Voltaren ).Has been asked to stop. Appreciate surgery recommendation Status: Acute (2) Hematochezia: Status: Acute (3) Radiculopathy of leg: Status: Acute (4) Sleep apnea: Status: Acute Qualifiers: Sleep apnea type: obstructive Qualified Code(s): G47.33 - Obstructive sleep apnea (adult) (pediatric) Additional A&P Information Bright bleed per rectum/hematochezia Hemoglobin 10, previous hemoglobin 14 reported August 25 Will obtain CBC and BMP on stat basis, diverticular versus hemorrhoidal bleed Abdomen soft no signs of peritonitis, will check lactic acid, mild leukocytosis noted on CBC from outside record N.p.o. H&H every 6 hours Keep her on maintenance fluid Will need colonoscopy, patient endorsing history of hemorrhoids and diverticulosis, no history of cancer She is not on any anticoagulants, no history of alcohol liver cirrhosis, hepatitis or liver cirrhosis Kindly consult general surgery in the morning for colonoscopy, no urgent indication overnight Obstructive sleep Overnight out of CPAP Hypertension: Currently hypotensive, I will hold losartan hydrochlorothiazide unless I know her kidney function level, continue nifedipine Clear liquid diet SCDs for DVT prophylaxis Full code Attestations Medical Necessity Statement*: Patient needs to be in hospital for management of GI bleed. 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
[2020-06-23 15:18] VITALS: BP 138/76; PULSE 80; RESP 18; TEMP 36.9; O2SAT 100
[2020-06-23] MEDS: peg /e-lyte soln 4,000 mL Btl 4000 ML PO (15:35)
[2020-06-23 16:58] LABS: Glucose Point of Care 155 mg/dL (70-110)
[2020-06-23 18:02] LABS: Glucose Point of Care 94 mg/dL (70-110)
[2020-06-23 20:00] VITALS: BP 163/78; PULSE 85; RESP 18; TEMP 36.7; O2SAT 99
[2020-06-23 20:10] VITALS: PULSE 75; RESP 16; O2SAT 99
[2020-06-23 21:25] LABS: Glucose Point of Care 103 mg/dL (70-110)
[2020-06-24] VITALS (8 sets, daily range): BP systolic 117–148; BP diastolic 67–83; PULSE 64–107; RESP 16–18; TEMP 36.1–37.4; O2SAT 95–100
[2020-06-24 03:38] LABS: Glucose Point of Care 126 mg/dL (70-110)
[2020-06-24] MEDS: pantoprazole 40 mg SDV IVP ×2 (04:12→18:30)
[2020-06-24 05:45] LABS: Hematocrit 29.7 % (37.0-47.0); Hemoglobin 9.2 g/dL (11.5-15.3); Mean Corpuscular Hemoglobin 29.2 pg (28.0-34.0); Mean Corpuscular Volume 94.3 fL (81-99); Mean Platelet Volume 9.3 fL (7.4-10.4); Platelet Count 343 10^3/cmm (130-400); Red Blood Count 3.15 10^6/uL (4.1-5.3); Red Cell Distribution Width 13.7 % (12.1-15.1); White Blood Count 8.9 10^3/uL (4.0-10.0)
[2020-06-24 06:07] LABS: Anion Gap 11.9 (5-19); Blood Urea Nitrogen 5 mg/dL (8-23); Calcium 8.2 mg/dL (8.5-10.5); Carbon Dioxide 29 mmol/L (22-29); Chloride 103 mmol/L (98-107); Glucose 108 mg/dL (65-115); Osmolality Calculated 290 mOsm/kg (285-295); Sodium 141 mmol/L (136-145)
[2020-06-24 06:23] LABS: Potassium 2.9 mmol/L (3.5-5.1)
[2020-06-24 06:37] LABS: Absolute Neutrophil 6.6 10^3/cmm (1.4-6.5); Absolute Segmented Neutrophil 6.6 10/cmm (1.6-7.1); Eosinophils 1 %; Giant Platelets Trace; Lymphocytes 20 %; Lymphocytes Absolute 1.8 10^3/cmm (1.2-3.4); Monocytes Absolute 0.4 10^3/cmm (0.1-0.6); Platelet Estimate Normal (Normal); Polychromasia Trace; Segmented Neutrophils 74 %; Total Cells Counted 100 (0-100)
[2020-06-24 06:38] LABS: Macrocytosis Trace; Poikilocytosis Trace
[2020-06-24 07:25] LABS: Glucose Point of Care 135 mg/dL (70-110)
[2020-06-24 10:42] LABS: Glucose Point of Care 119 mg/dL (70-110)
[2020-06-24] MEDS: lidocaine 1% 5 ML in potassium chloride premix 100 ML 25 ML IV ×2 (11:08→18:31)
[2020-06-24] MEDS: dextrose 5%-sod chloride 0.45% 1,000 ML 50 ML IV (11:11)
[2020-06-24] MEDS: ondansetron 2 mg/ML SDV 2 mL 4 MG IVP (11:17)
--- NOTE | 2020-06-24 12:47 | ANES.PREANE2 ---
Pre-Anesthetic Assessment Pre-Anesthetic Assessment: Height/Weight: Height 1.55 m Weight 96.026 kg Temp Pulse Resp BP Pulse Ox 99.0 F 107 H 18 147/83 98 06/24/20 11:18 06/24/20 11:18 06/24/20 11:18 06/24/20 11:18 06/24/20 11:18 Preop Diagnosis: Bleeding per rectum Proposed Procedure: Operation Date: 06/24/20 13:00 Proposed Procedures p EGD/Colonoscopy(Not Applicable) - Marco Vasques MD Social: Social History: No alcohol and No tobacco Exam: Pre-Anes Outpt Exam: alert, oriented x 3, clear to auscultation bilaterally and regular rate & rhythm Airway: Submandibular: WNL Cervical ROM: WNL MP: 3 Dentition: Chipped and Partials Additional comments: decay Pulmonary: Pulmonary: COPD, GARRIDO, Sleep apnea and SOB CV/HEM: CV/HEM: Angina (Stable), CAD and HTN : : UTI Hepatic: Hepatic: None reported GI: Comments: bloody stool Metabolic: Metabolic: DM and Morbid obesity Musc/skel: Musc/skel: Lower Back Pain, OA/DJD and Weakness Neuropsych: Neuropsych: Depression Anesthetic Plan: ASA status: 3 Anesthesia: Anesthesia Evaluation and MAC Risk of > 500 ml blood loss (7ml/kg in children): No Meds/Allergies Current Medications: Current Medications Generic Name Dose Route Start Last Admin Trade Name Freq PRN Reason Stop Dose Admin Dextrose/Sodium Ch loride 1,000 mls @ 50 ml s/hr 06/21/20 11:30 06/24/20 11:11 Dextrose 5%-Sod Chloride 0.45% IV 50 mls/hr .Q20H MARIA DE JESUS Administration Lidocaine HCl 5 ml / Potassium 105 mls @ 25 mls/ hr 06/24/20 10:15 06/24/20 11:08 Chloride IV 25 mls/hr Q4H MARIA DE JESUS Administration Insulin Aspart 0 unit 06/21/20 12:00 06/24/20 12:31 Insulin Aspart 1 00 Unit/1 Ml SUBCUT Not Given WM&BEDTIME MARIA DE JESUS Protocol Ondansetron HCl 4 mg 06/22/20 10:12 06/24/20 11:17 Ondansetron 2 Mg /Ml Sdv 2 Ml IVP 4 mg Q6H PRN Administration NAUSEA AND VOMITI NG Pantoprazole Sodiu m 40 mg 06/21/20 03:45 06/24/20 04:12 Pantoprazole 40 Mg Sdv IVP 40 mg Q12H MARIA DE JESUS Administration PFSH Anesthesia PFSH: Medical History ASHD (arteriosclerotic heart disease) COPD (chronic obstructive pulmonary disease) Diabetes Esophagitis Essential hypertension, benign Hyperlipidemia Hypertension Leg swelling Osteoarthritis Shortness of breath Sleep apnea Spinal stenosis of lumbar region with radiculopathy Surgical History H/O hemorrhoidectomy H/O: hysterectomy H/O: knee surgery History of appendectomy History of bladder surgery History of non-cataract eye surgery History of rectal surgery Hx of cataract surgery Hx of cholecystectomy Hx of hernia repair Hx of repair of rotator cuff Family History Mother CAD (coronary artery disease) Dementia Diabetes Stroke Father Cancer Brother Chronic kidney disease (CKD) Denies family history of Clotting disorder Suicide Anesthesia complication Bleeding disorder Lung disease Social History Second hand smoke exposure: No Alcohol intake: never Desire information about alcohol rehabilitation?: No Counseling given: No Desire information about substance/drug rehabilitation?: No Counseling given: No Data Anesthesia CBC & Chem 7: 06/24/20 04:46 06/24/20 04:46 Other Labs: Laboratory Results - last 48 hr 06/22/20 06/22/20 06/22/20 16:30 16:45 20:37 WBC 11.2 H RBC 3.47 L Hgb 10.1 L Hct 32.2 L MCV 92.8 MCH 29.1 MCHC 31.4 RDW 13.8 Plt Count 235 MPV 10.0 Neut % (Auto) 69.2 Lymph % (Auto) 22.0 [place] % (Auto) 6.3 Eos % (Auto) 1.5 Baso % (Auto) 0.4 Neut # (Auto) 7.75 H Lymph # (Auto) 2.5 [place] # (Auto) 0.7 Eos # (Auto) 0.2 Baso # (Auto) 0.1 Nucleated RBC % (auto) 0 Total Counted Atypical Lymphs % Absolute Neutrophils Segmented Neutrophils Abs Segm Neuts (Man) Band Neutrophils Abs Band Neuts (Man) Absolute Lymphocytes Lymphocytes (Manual) Monocytes (Manual) Absolute Monocytes Eosinophils (Manual) Absolute Eosinophils Basophils (Manual) Absolute Basophils Nucleated RBCs # 0.0 Platelet Estimate Giant Platelets Polychromasia Poikilocytosis Anisocytosis Macrocytosis Sodium Potassium Chloride Carbon Dioxide Anion Gap BUN Creatinine GFR Calculation Glucose POC Glucose 80 156 H Calculated Osmolality Calcium 06/23/20 06/23/20 06/23/20 06:16 06:36 06:36 WBC 8.8 RBC 2.99 L Hgb 8.8 L Hct 28.6 L MCV 95.7 MCH 29.4 MCHC 30.8 RDW 13.8 Plt Count 301 MPV 8.9 Neut % (Auto) Lymph % (Auto) [place] % (Auto) Eos % (Auto) Baso % (Auto) Neut # (Auto) Lymph # (Auto) [place] # (Auto) Eos # (Auto) Baso # (Auto) Nucleated RBC % (auto) Total Counted 100 Atypical Lymphs % 0.0 Absolute Neutrophils 5.6 Segmented Neutrophils 63 Abs Segm Neuts (Man) 5.5 Band Neutrophils 1.0 Abs Band Neuts (Man) 0.1 Absolute Lymphocytes 3.0 Lymphocytes (Manual) 34 Monocytes (Manual) 2.0 Absolute Monocytes 0.2 Eosinophils (Manual) 0 Absolute Eosinophils 0.0 Basophils (Manual) 0.0 Absolute Basophils 0.0 Nucleated RBCs # Platelet Estimate Normal Giant Platelets Polychromasia Poikilocytosis Trace Anisocytosis 1+ H Macrocytosis Sodium 139 Potassium 3.5 Chloride 105 Carbon Dioxide 26 Anion Gap 11.5 BUN 6 L Creatinine 0.5 GFR Calculation Not Reportable Glucose 108 POC Glucose 126 H Calculated Osmolality 286 Calcium 8.2 L 06/23/20 06/23/20 06/23/20 10:47 16:49 17:59 WBC RBC Hgb Hct MCV MCH MCHC RDW Plt Count MPV Neut % (Auto) Lymph % (Auto) [place] % (Auto) Eos % (Auto) Baso % (Auto) Neut # (Auto) Lymph # (Auto) [place] # (Auto) Eos # (Auto) Baso # (Auto) Nucleated RBC % (auto) Total Counted Atypical Lymphs % Absolute Neutrophils Segmented Neutrophils Abs Segm Neuts (Man) Band Neutrophils Abs Band Neuts (Man) Absolute Lymphocytes Lymphocytes (Manual) Monocytes (Manual) Absolute Monocytes Eosinophils (Manual) Absolute Eosinophils Basophils (Manual) Absolute Basophils Nucleated RBCs # Platelet Estimate Giant Platelets Polychromasia Poikilocytosis Anisocytosis Macrocytosis Sodium Potassium Chloride Carbon Dioxide Anion Gap BUN Creatinine GFR Calculation Glucose POC Glucose 149 H 155 H 94 Calculated Osmolality Calcium 06/23/20 06/24/20 06/24/20 20:16 03:18 04:46 WBC 8.9 RBC 3.15 L Hgb 9.2 L Hct 29.7 L MCV 94.3 MCH 29.2 MCHC 31.0 RDW 13.7 Plt Count 343 MPV 9.3 Neut % (Auto) Lymph % (Auto) [place] % (Auto) Eos % (Auto) Baso % (Auto) Neut # (Auto) Lymph # (Auto) [place] # (Auto) Eos # (Auto) Baso # (Auto) Nucleated RBC % (auto) Total Counted 100 Atypical Lymphs % 0.0 Absolute Neutrophils 6.6 H Segmented Neutrophils 74 Abs Segm Neuts (Man) 6.6 Band Neutrophils 0.0 Abs Band Neuts (Man) 0.0 Absolute Lymphocytes 1.8 Lymphocytes (Manual) 20 Monocytes (Manual) 5.0 Absolute Monocytes 0.4 Eosinophils (Manual) 1 Absolute Eosinophils 0.0 Basophils (Manual) 0.0 Absolute Basophils 0.0 Nucleated RBCs # Platelet Estimate Normal Giant Platelets Trace Polychromasia Trace Poikilocytosis Trace Anisocytosis Macrocytosis Trace Sodium Potassium Chloride Carbon Dioxide Anion Gap BUN Creatinine GFR Calculation Glucose POC Glucose 103 126 H Calculated Osmolality Calcium 06/24/20 06/24/20 06/24/20 04:46 06:19 10:37 WBC RBC Hgb Hct MCV MCH MCHC RDW Plt Count MPV Neut % (Auto) Lymph % (Auto) [place] % (Auto) Eos % (Auto) Baso % (Auto) Neut # (Auto) Lymph # (Auto) [place] # (Auto) Eos # (Auto) Baso # (Auto) Nucleated RBC % (auto) Total Counted Atypical Lymphs % Absolute Neutrophils Segmented Neutrophils Abs Segm Neuts (Man) Band Neutrophils Abs Band Neuts (Man) Absolute Lymphocytes Lymphocytes (Manual) Monocytes (Manual) Absolute Monocytes Eosinophils (Manual) Absolute Eosinophils Basophils (Manual) Absolute Basophils Nucleated RBCs # Platelet Estimate Giant Platelets Polychromasia Poikilocytosis Anisocytosis Macrocytosis Sodium 141 Potassium 2.9 L Chloride 103 Carbon Dioxide 29 Anion Gap 11.9 BUN 5 L Creatinine 0.5 GFR Calculation Not Reportable Glucose 108 POC Glucose 135 H 119 H Calculated Osmolality 290 Calcium 8.2 L Cardiac Studies: No Data to Display
[2020-06-24] MEDS: sodium chloride 0.9% 1,000 ML 30 ML IV (12:59)
--- NOTE | 2020-06-24 13:49 | PC.CHAP ---
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 visit [] Patient/Family/Request visit [] Outpatient visit [x] Follow-up visit [] Physician referral [] Code/Alert [] Routine visit [] Staff referral [] Actively dying [] Patient sleeping [] Family support [] [] Out of room [] Palliative care [] [] Receiving care in room [] Pre-surgical visit [] Trauma [] Long length of stay [] ICU visit [] Other: Relational/Emotional Strength [] Patient feels connected with others/family/visitors/staff [] Distress [] Loneliness/isolation [] Abandonment Spirituality of Patient [] Person of Jennifer [] Attends Anabaptism of their Jennifer [] Believes in Prayer [] Reads Bible or Roman Catholic materials [] There are Spiritual issues to be addressed Talent Manager Interventions [] Prayer [] Active listening [] Non-anxious presence [] Spiritual/emotional support [] Crisis/trauma care [] Spiritual counseling [] Bereavement support [] Provided bereavement packet [] Provided Bible/devotional materials [] Provided toy/stuffed animal, coloring book to patient or family member [] Provided Communion [] Anointing/[place] [] Salvation [] Completed spiritual assessment [] Other: Impact on Illness or Injury [] Angry [] Fearful [] Anxious [] Often cries [] Exhaustion [] Unable to work [] Unable to attend gnosticism [] Unable to walk/stand [] Unable to read [] Unable to drive [] Unable to eat/drink [] Unable to sleep [] Unable to be with family [] Patient intubated [] Other: Summary Time spent with patient
--- NOTE | 2020-06-24 15:38 | ANE.PACU2 ---
Inpatient post-anesthesia follow up: Airway intact: Yes Vital signs: Temperature 98.5 F Pulse Rate [Orthos tatic Lying 90 Left] Pulse Rate [Orthos tatic 86 Sitting Left] Pulse Rate 79 Respiratory Rate 18 Blood Pressure [Or thostatic 140/79 Standing Left Arm] Blood Pressure [Or thostatic 132/81 Sitting Left Arm] Blood Pressure 141/82 Pulse Oximetry 96 Oxygen Delivery Me thod Nasal Cannula Oxygen Flow Rate 2 Fraction of Inspir ed Oxygen 21 Hydration adequate: Yes Nausea and vomiting: No Pain level: 1 Mental status: Baseline
--- NOTE | 2020-06-24 16:09 | P.TS_ITS ---
Transfer Summary Providers Date of Admission: 06/23/20 16:17 Date of Discharge: 06/24/20 Attending Provider at Admission: Zak Kulkarni MD Attending Provider at Transfer: Janette Kaminski MD Primary Care Provider: Wendy Otero MD Anticipated Date of Transfer: Anticipated date of transfer: 06/24/20 Receiving Facility & Provider: Receiving Provider: [Dr. Alejandro Denise] Receiving facility: [[place], [place] ] Diagnoses at Discharge Discharge Diagnosis (1) Lower GI bleed: Status: Acute (2) Hematochezia: Status: Acute (3) Radiculopathy of leg: Status: Acute (4) Sleep apnea: Status: Acute Qualifiers: Sleep apnea type: obstructive Qualified Code(s): G47.33 - Obstructive sleep apnea (adult) (pediatric) Reason for Visit Reason for Visit: Lower GI Bleed Hospital Course Hospital Course Delores Keyes is a 75 year old female who has history of hemorrhoids, diverticulosis presented on June 21 with chief complaint of emesis and bright red blood per rectum. Prior to onset of symptoms she had some abdominal cramps and nausea. She experienced one episode of emesis which was projectile, no blood, and thereafter had a bowel movement which was fresh red blood per rectum, and a second episode upon returning home. She is not on any anticoagulation. Takes NSAID daily for chronic pain. Hemoglobin upon arrival was at 7.5, last known baseline from 1 year ago was at 14. She received 2 units of packed red blood cells blood transfusion which improved her hemoglobin to 10.1 on June 22. Today she is at 9.2. She remained hemodynamically stable, afebrile during course of admission here. Underwent upper and lower GI endoscopy today with general surgery, of which upper GI endoscopy showed gastritis without any active bleeding. Colonoscopy showed a moderate amount of red blood in the ascending colon, from the distal transverse colon to distal sigmoid colon there were extensive [place] diverticula that were noted, without any active bleeding. Terminal ileum was intubated and there was presence of fresh blood and clots, no gross source was identified to explain the bleeding, however due to concern for potentially small bowel bleeding, general surgery recommended GI evaluation for possible capsule endoscopy versus IR embolization. Patient is being transferred to the hospitalist service with GI consulting at [facility]. Physical Exam Narrative: EXAM NARRATIVE: GEN: Awake, alert and oriented, no acute distress CVS: S1S2 N RS: CTA B/L all areas Abd: Soft, nt/nd , bs+ BURLAP BAG SEWER: no focal neuro deficits TS Data Data Completed and Pending: Completed Studies During Hospitalization Category Date Time Status CT abdomen pelvis wo con [id number] Rout gayle Cat Scan 06/21/20 08:59 Completed Pending at discharge Category Date Time Status H. Pylori / TEOFILO T est Routine Lab 06/24/20 13:25 Ordered Helicobacter Pylo ri AG Stool Routin e Lab 06/22/20 10:46 Received Labs from last 24 hours 06/24/20 06/24/20 06/24/20 10:37 06:19 04:46 WBC RBC Hgb Hct MCV MCH MCHC RDW Plt Count MPV Total Counted Atypical Lymphs % Absolute Neutrophi ls Segmented Neutroph ils Abs Segm Neuts (Ma n) Band Neutrophils Abs Band Neuts (Ma n) Absolute Lymphocyt es Lymphocytes (Manua l) Monocytes (Manual) Absolute Monocytes Eosinophils (Manua l) Absolute Eosinophi ls Basophils (Manual) Absolute Basophils Platelet Estimate Giant Platelets Polychromasia Poikilocytosis Macrocytosis Sodium 141 Potassium 2.9 L Chloride 103 Carbon Dioxide 29 Anion Gap 11.9 BUN 5 L Creatinine 0.5 GFR Calculation Not Reportable Glucose 108 POC Glucose 119 H 135 H Calculated Osmolal ity 290 Calcium 8.2 L 06/24/20 06/24/20 06/23/20 04:46 03:18 20:16 WBC 8.9 RBC 3.15 L Hgb 9.2 L Hct 29.7 L MCV 94.3 MCH 29.2 MCHC 31.0 RDW 13.7 Plt Count 343 MPV 9.3 Total Counted 100 Atypical Lymphs % 0.0 Absolute Neutrophi ls 6.6 H Segmented Neutroph ils 74 Abs Segm Neuts (Ma n) 6.6 Band Neutrophils 0.0 Abs Band Neuts (Ma n) 0.0 Absolute Lymphocyt es 1.8 Lymphocytes (Manua l) 20 Monocytes (Manual) 5.0 Absolute Monocytes 0.4 Eosinophils (Manua l) 1 Absolute Eosinophi ls 0.0 Basophils (Manual) 0.0 Absolute Basophils 0.0 Platelet Estimate Normal Giant Platelets Trace Polychromasia Trace Poikilocytosis Trace Macrocytosis Trace Sodium Potassium Chloride Carbon Dioxide Anion Gap BUN Creatinine GFR Calculation Glucose POC Glucose 126 H 103 Calculated Osmolal ity Calcium 06/23/20 06/23/20 17:59 16:49 WBC RBC Hgb Hct MCV MCH MCHC RDW Plt Count MPV Total Counted Atypical Lymphs % Absolute Neutrophi ls Segmented Neutroph ils Abs Segm Neuts (Ma n) Band Neutrophils Abs Band Neuts (Ma n) Absolute Lymphocyt es Lymphocytes (Manua l) Monocytes (Manual) Absolute Monocytes Eosinophils (Manua l) Absolute Eosinophi ls Basophils (Manual) Absolute Basophils Platelet Estimate Giant Platelets Polychromasia Poikilocytosis Macrocytosis Sodium Potassium Chloride Carbon Dioxide Anion Gap BUN Creatinine GFR Calculation Glucose POC Glucose 94 155 H Calculated Osmolal ity Calcium Addt'l Data from Hospital Stay: Laboratory Results WBC 8.9 10^3/uL (4.0- 10.0) 06/24/20 04:46 RBC 3.15 10^6/uL (4.1 -5.3) L 06/24/20 04:46 Hgb 9.2 g/dL (11.5-15 .3) L 06/24/20 04:46 Hct 29.7 % (37.0-47.0 ) L 06/24/20 04:46 MCV 94.3 fL (81-99) 06/24/20 04:46 MCH 29.2 pg (28.0-34. 0) 06/24/20 04:46 MCHC 31.0 g/dL (30.0-3 6.0) 06/24/20 04:46 RDW 13.7 % (12.1-15.1 ) 06/24/20 04:46 Plt Count 343 10^3/cmm (130 -400) 06/24/20 04:46 MPV 9.3 fL (7.4-10.4) 06/24/20 04:46 Neut % (Auto) 69.2 % 06/22/20 16:30 Lymph % (Auto) 22.0 % 06/22/20 16:30 [place] % (Auto) 6.3 % 06/22/20 16:30 Eos % (Auto) 1.5 % 06/22/20 16:30 Baso % (Auto) 0.4 % 06/22/20 16:30 Neut # (Auto) 7.75 10^3/uL (1.8 -7.7) H 06/22/20 16:30 Lymph # (Auto) 2.5 10^3/uL (0.8- 4.8) 06/22/20 16:30 [place] # (Auto) 0.7 10^3/uL (0.2- 0.9) 06/22/20 16:30 Eos # (Auto) 0.2 10^3/uL (0.0- 0.8) 06/22/20 16:30 Baso # (Auto) 0.1 10^3/uL (0.0- 0.1) 06/22/20 16:30 Nucleated RBC % (a uto) 0 % 06/22/20 16:30 Total Counted 100 (0-100) 06/24/20 04:46 Atypical Lymphs % 0.0 % (0-5) 06/24/20 04:46 Absolute Neutrophi ls 6.6 10^3/cmm (1.4 -6.5) H 06/24/20 04:46 Segmented Neutroph ils 74 % 06/24/20 04:46 Abs Segm Neuts (Ma n) 6.6 10/cmm (1.6-7 .1) 06/24/20 04:46 Band Neutrophils 0.0 % 06/24/20 04:46 Abs Band Neuts (Ma n) 0.0 10^3/cmm (0.0 -1.2) 06/24/20 04:46 Absolute Lymphocyt es 1.8 10^3/cmm (1.2 -3.4) 06/24/20 04:46 Lymphocytes (Manua l) 20 % 06/24/20 04:46 Monocytes (Manual) 5.0 % 06/24/20 04:46 Absolute Monocytes 0.4 10^3/cmm (0.1 -0.6) 06/24/20 04:46 Eosinophils (Manua l) 1 % 06/24/20 04:46 Absolute Eosinophi ls 0.0 10^3/cmm (0.0 -0.7) 06/24/20 04:46 Basophils (Manual) 0.0 % 06/24/20 04:46 Absolute Basophils 0.0 10^3/cmm (0.0 -0.2) 06/24/20 04:46 Nucleated RBCs # 0.0 /100WBC 06/22/20 16:30 Platelet Estimate Normal (Normal) 06/24/20 04:46 Giant Platelets Trace 06/24/20 04:46 Polychromasia Trace 06/24/20 04:46 Poikilocytosis Trace 06/24/20 04:46 Anisocytosis 1+ H 06/23/20 06:36 Macrocytosis Trace 06/24/20 04:46 Sodium 141 mmol/L (136-1 45) 06/24/20 04:46 Potassium 2.9 mmol/L (3.5-5 .1) L 06/24/20 04:46 Chloride 103 mmol/L (98-10 7) 06/24/20 04:46 Carbon Dioxide 29 mmol/L (22-29) 06/24/20 04:46 Anion Gap 11.9 (5-19) 06/24/20 04:46 BUN 5 mg/dL (8-23) L 06/24/20 04:46 Creatinine 0.5 mg/dL (0.5-0. 9) 06/24/20 04:46 GFR Calculation Not Reportable 06/24/20 04:46 Glucose 108 mg/dL (65-115 ) 06/24/20 04:46 POC Glucose 119 mg/dL (70-110 ) H 06/24/20 10:37 Calculated Osmolal ity 290 mOsm/kg (285- 295) 06/24/20 04:46 Lactate 2.7 mmol/L (0.5-2 .2) H 06/21/20 08:28 Calcium 8.2 mg/dL (8.5-10 .5) L 06/24/20 04:46 Iron 165 ug/dL (37-145 ) H 06/22/20 06:34 TIBC 235 mcg/dl 06/22/20 06:34 % Saturation 70.2 % (20-50) H 06/22/20 06:34 Unsat Iron Binding 70 ug/dL (112-347 ) L 06/22/20 06:34 Transferrin 198 mg/dL (200-36 0) L 06/22/20 06:34 Ferritin 131 ng/mL (15-150 ) 06/22/20 06:34 Blood Type O Positive 06/21/20 08:30 Rho(D) Type Positive / 4+ 06/21/20 08:30 Antibody Screen Negative 06/21/20 08:30 Crossmatch See Detail 06/21/20 08:30 Impressions Abdomen/Pelvis CT 06/21/20 08:59 Impression: 1. Umbilical hernia containing small bowel with no evidence of strangulation. 2. Negative for acute intra-abdominal or pelvic abnormalities. Vitals: Last Vital Signs Temp 98.5 F 06/24/20 15:21 Pulse 79 06/24/20 15:21 Resp 18 06/24/20 15:21 BP 141/82 06/24/20 15:21 Pulse Ox 96 06/24/20 15:21 TS Medications Medications Home Medications potassium gluconate 595 mg (99 mg) tablet 595 mg PO DAILY tab 03/22/19 [History Confirmed 06/21/20] triamterene 37.5 mg-hydrochlorothiazide 25 mg capsule 1 cap PO DAILY #90 cap 03/11/20 [Rx Confirmed 06/21/20] diclofenac sodium 75 mg tablet,delayed release 75 mg PO BID #60 tab 06/13/20 [Rx Confirmed 06/21/20] nifedipine 90 mg tablet,extended release 24 hr 90 mg PO DAILY #90 tab 06/13/20 [Rx Confirmed 06/21/20] nitroglycerin 6.5 mg capsule,extended release 6.5 mg PO TID #270 cap 06/13/20 [Rx Confirmed 06/21/20] albuterol sulfate [ProAir HFA] 2 puff INHALATION Q6H PRN 06/21/20 [History Confirmed 06/21/20] beclomethasone dipropionate [Qvar] See Rx Instructions .ROUTE .COMPLEX 06/21/20 [History Confirmed 06/21/20] diphenhydramine-acetaminophen [Tylenol PM Extra Strength] 1 tab PO PRN 06/21/20 [History Confirmed 06/21/20] docusate sodium 100 mg PO DAILY@06/21/20 [History Confirmed 06/21/20] furosemide 20 mg PO QPM PRN 06/21/20 [History Confirmed 06/21/20] gabapentin 200 mg PO BEDTIME PRN 06/21/20 [History Confirmed 06/21/20] losartan 50 mg PO QAM PRN 06/21/20 [History Confirmed 06/21/20] metformin 250 mg PO BID@08,06/21/20 [History Confirmed 06/21/20] rosuvastatin 20 mg PO DAILY@08 06/21/20 [History Confirmed 06/21/20] sennosides-docusate sodium [Senna-S] 1 tab-cap PO QAM 06/21/20 [History Confirmed 06/21/20] sulfamethoxazole-trimethoprim 1 tab PO BID PRN 06/21/20 [History Confirmed 06/21/20] Active Medications Dextrose/Sodium Chloride (Dextrose 5%-Sod Chloride 0.45%) 1,000 mls @ 50 mls/hr IV .Q20H MARIA DE JESUS Last Admin: 06/24/20 11:11 Dose: 50 mls/hr Documented by: Sodium Chloride (Sodium Chloride 0.9%) 1,000 mls @ 30 mls/hr IV .Q24H ONE Stop: 06/25/20 07:59 Last Admin: 06/24/20 12:59 Dose: 30 mls/hr Documented by: Lidocaine HCl 5 ml/ Potassium (Chloride) 105 mls @ 25 mls/hr IV Q4H MARIA DE JESUS Stop: 06/24/20 22:14 Last Admin: 06/24/20 11:08 Dose: 25 mls/hr Documented by: Insulin Aspart (Insulin Aspart 100 Unit/1 Ml) 0 unit SUBCUT WM&BEDTIME [facility]; Protocol Last Admin: 06/24/20 12:31 Dose: Not Given Documented by: Ondansetron HCl (Ondansetron 2 Mg/Ml Sdv 2 Ml) 4 mg IVP Q6H PRN PRN Reason: NAUSEA AND VOMITING Last Admin: 06/24/20 11:17 Dose: 4 mg Documented by: Pantoprazole Sodium (Pantoprazole 40 Mg Sdv) 40 mg IVP Q12H [facility] Last Admin: 06/24/20 04:12 Dose: 40 mg Documented by: Discharge Plan Discharge Condition: Stable Prescriptions: No Action potassium gluconate 595 mg (99 mg) tablet 595 mg PO DAILY RF: 0 triamterene-hydrochlorothiazid [Dyazide] 37.5-25 mg capsule 1 cap PO DAILY Qty: 90 RF: 3 nifedipine 90 mg tablet extended release 24hr 90 mg PO DAILY Qty: 90 RF: 3 diclofenac sodium 75 mg tablet,delayed release (DR/EC) 75 mg PO BID Qty: 60 RF: 1 nitroglycerin [Nitro-Time] 6.5 mg capsule, extended release 6.5 mg PO TID Qty: 270 RF: 3 furosemide 40 mg tablet 20 mg PO QPM PRN (Reason: Edema) RF: 0 Senna-S 8.6-50 mg Tablet 1 tab-cap PO QAM RF: 0 sulfamethoxazole-trimethoprim 800-160 mg tablet 1 tab PO BID PRN (Reason: INFECTION) RF: 0 Qvar 80 mcg/actuation Aerosol See Rx Instructions .ROUTE .COMPLEX RF: 0 docusate sodium 100 mg Capsule 100 mg PO DAILY@17 RF: 0 gabapentin 100 mg Capsule 200 mg PO BEDTIME PRN (Reason: UNKNOWN) RF: 0 ProAir HFA 90 mcg/actuation Hfa Aerosol Inhaler 2 puff INHALATION Q6H PRN (Reason: Shortness Of Breath) RF: 0 Tylenol PM Extra Strength 25-500 mg Tablet 1 tab PO PRN RF: 0 losartan 100 mg tablet 50 mg PO QAM PRN (Reason: Blood Pressure) RF: 0 metformin 500 mg tablet extended release 24 hr 250 mg PO BID@08,17 RF: 0 rosuvastatin 20 mg tablet 20 mg PO DAILY@08 RF: 0 Other Ambulatory Orders: DME: [facility] (Order) Location: None Selected Ordered By: Arnaud Peña Referrals: [facility] [Other] (Referral has been faxed to this facility, Please call Wednesday and set up schedule for therapy time. [phone]. ) Patient Instructions: Opioid Safety, GI Discharge Instructions Transfer Attestations Time Spent in Transfer Care*: greater than 30 min Specific Discharge Activities: Specific discharge activities: educating patient, discussing with pcp/other providers and documenting/other paperwork Quality Metrics Clinical Quality Measures: During this hospital stay, did patient experience: None Coding Level of Care Code Acute Manager Of [employer] Fwd Diagnoses Lower GI bleed K92.2 Hematochezia K92.1 Radiculopathy of leg M54.10 Sleep apnea G47.33 Sleep apnea type: obstructive
[2020-06-24 16:57] LABS: Glucose Point of Care 129 mg/dL (70-110)
[2020-06-25 14:11] LABS: H. Pylori / CLO Test Negative
--- NOTE | 2020-06-26 17:31 | PC.RESP ---
pulmonary Rehab information sent to patient.
== END 2020-06-24 19:00 | disposition short-term general hospital (02) | DRG 379 ==
PROVIDERS: Internal Medicine; Surgery; Admitting Provider Internal Medicine; Family Provider Family Medicine; PCP Family Medicine; Visit Provider Student in an Organized Health Care Education/Training Program
PROC: 0DJ08ZZ Inspection of Upper Intestinal Tract, Via Natural or Artificial Opening Endoscopic (ICD-10-PCS; CPT 43235; principal; 2020-06-24 13:00)
PROC: 0DJD8ZZ Inspection of Lower Intestinal Tract, Via Natural or Artificial Opening Endoscopic (ICD-10-PCS; CPT 45378; 2020-06-24 13:00)
DX: K92.1 Melena (principal); K57.30 Diverticulosis of large intestine without perforation or abscess without bleeding; M54.10 Radiculopathy, site unspecified; G47.33 Obstructive sleep apnea (adult) (pediatric); J44.9 Chronic obstructive pulmonary disease, unspecified; E11.9 Type 2 diabetes mellitus without complications; I10 Essential (primary) hypertension; E78.5 Hyperlipidemia, unspecified
CPT/HCPCS: 36415; 36416; 36430; 43239; 45378; 74176; 80048; 82728; 82962; 83540; 83550; 83605; 84466; 85007; 85025; 85027; 86850; 86900; 86920; 87077; 87338; 93005; 94660; 96372; 97110; 97116; 97161; C9113; G0378; G0379; J1815; J2405; J2704; J3480; J7030; J7799; P9016

== ENCOUNTER → 2020-07-11 13:01 | Outpatient (BNVA) | payer MEDICARE, BC, SELFPAY | PROVIDERS: Family Provider Family Medicine; PCP Family Medicine; Visit Provider Family Medicine | DX: E53.8 Deficiency of other specified B group vitamins (principal); E87.6 Hypokalemia; K92.2 Gastrointestinal hemorrhage, unspecified; Z09 Encounter for follow-up examination after completed treatment for conditions other than malignant neoplasm; M54.10 Radiculopathy, site unspecified; I10 Essential (primary) hypertension | CPT/HCPCS: 80048; 82607; 82728; 85025 ==

== ENCOUNTER → 2020-10-01 12:13 | Outpatient (BNVA) | payer MEDICARE, BC, SELFPAY | PROVIDERS: Family Provider Family Medicine; PCP Family Medicine; Visit Provider Family Medicine | DX: E11.65 Type 2 diabetes mellitus with hyperglycemia (principal); I10 Essential (primary) hypertension; M48.061 Spinal stenosis, lumbar region without neurogenic claudication; M54.16 Radiculopathy, lumbar region; K21.9 Gastro-esophageal reflux disease without esophagitis; I87.2 Venous insufficiency (chronic) (peripheral) | CPT/HCPCS: 83036; 85025 ==

== ENCOUNTER → 2021-05-08 11:59 | Outpatient (BNVA) | payer MEDICARE, BC, SELFPAY | PROVIDERS: Family Provider Family Medicine; PCP Family Medicine; Visit Provider Family Medicine | DX: R35.0 Frequency of micturition (principal); E78.5 Hyperlipidemia, unspecified; I25.10 Atherosclerotic heart disease of native coronary artery without angina pectoris; E11.65 Type 2 diabetes mellitus with hyperglycemia; K21.9 Gastro-esophageal reflux disease without esophagitis; I10 Essential (primary) hypertension; M54.10 Radiculopathy, site unspecified | CPT/HCPCS: 80053; 81000; 83036; 83880; 85025 ==

== ENCOUNTER → 2021-05-15 10:44 | Outpatient (BNVA) | payer MEDICARE, BC, SELFPAY | PROVIDERS: Family Provider Family Medicine; PCP Family Medicine; Visit Provider Internal Medicine Cardiovascular Disease | DX: I25.10 Atherosclerotic heart disease of native coronary artery without angina pectoris (principal); E11.65 Type 2 diabetes mellitus with hyperglycemia; G47.33 Obstructive sleep apnea (adult) (pediatric); I87.2 Venous insufficiency (chronic) (peripheral) | CPT/HCPCS: 99214 ==

== ENCOUNTER → 2021-12-23 12:14 | Outpatient (BNVA) | payer MEDICARE, BC, SELFPAY | PROVIDERS: Family Provider Family Medicine; PCP Family Medicine; Visit Provider Internal Medicine Cardiovascular Disease | DX: R06.02 Shortness of breath (principal); E78.2 Mixed hyperlipidemia; E78.5 Hyperlipidemia, unspecified; N18.9 Chronic kidney disease, unspecified; I25.10 Atherosclerotic heart disease of native coronary artery without angina pectoris; M79.89 Other specified soft tissue disorders; G47.33 Obstructive sleep apnea (adult) (pediatric); I87.2 Venous insufficiency (chronic) (peripheral); E11.65 Type 2 diabetes mellitus with hyperglycemia; Z79.84 Long term (current) use of oral hypoglycemic drugs; I12.9 Hypertensive chronic kidney disease with stage 1 through stage 4 chronic kidney disease, or unspecified chronic kidney disease; E11.22 Type 2 diabetes mellitus with diabetic chronic kidney disease | CPT/HCPCS: 36415; 80048; 80061; 83880; 84443; 99214 ==

== ENCOUNTER → 2021-12-25 11:19 | Outpatient (BNVA) | payer MEDICARE, BC, SELFPAY | PROVIDERS: Family Provider Family Medicine; PCP Family Medicine; Visit Provider Family Medicine | DX: R31.9 Hematuria, unspecified (principal); L57.0 Actinic keratosis; R39.9 Unspecified symptoms and signs involving the genitourinary system; K21.9 Gastro-esophageal reflux disease without esophagitis | CPT/HCPCS: 81000 ==

== ENCOUNTER → 2022-06-30 11:20 | Outpatient (BNVA) | payer MEDICARE, SELFPAY | PROVIDERS: Family Provider Family Medicine; PCP Family Medicine; Visit Provider Internal Medicine Cardiovascular Disease | DX: M79.89 Other specified soft tissue disorders (principal); I10 Essential (primary) hypertension; E78.2 Mixed hyperlipidemia; I25.10 Atherosclerotic heart disease of native coronary artery without angina pectoris; M62.838 Other muscle spasm; E11.65 Type 2 diabetes mellitus with hyperglycemia; Z79.84 Long term (current) use of oral hypoglycemic drugs | CPT/HCPCS: 99214 ==

== ENCOUNTER → 2022-07-16 11:07 | Outpatient (BNVA) | payer MEDICARE, SELFPAY | PROVIDERS: Family Provider Family Medicine; PCP Family Medicine; Visit Provider Family Medicine | DX: E78.2 Mixed hyperlipidemia; N18.9 Chronic kidney disease, unspecified; E11.22 Type 2 diabetes mellitus with diabetic chronic kidney disease; R25.2 Cramp and spasm; E11.65 Type 2 diabetes mellitus with hyperglycemia; R06.02 Shortness of breath; M62.838 Other muscle spasm | CPT/HCPCS: 80048; 82252; 83036; 83735; 84443; 85025 ==

== ENCOUNTER → 2022-12-17 11:39 | Outpatient (BNVA) | payer MEDICARE, SELFPAY | PROVIDERS: Family Provider Family Medicine; PCP Family Medicine; Visit Provider Family Medicine | DX: E11.9 Type 2 diabetes mellitus without complications; I10 Essential (primary) hypertension; E78.5 Hyperlipidemia, unspecified; I25.10 Atherosclerotic heart disease of native coronary artery without angina pectoris; M48.061 Spinal stenosis, lumbar region without neurogenic claudication; M54.16 Radiculopathy, lumbar region | CPT/HCPCS: 80053; 80061; 83036; 85025 ==

== ENCOUNTER → 2022-12-31 11:02 | Outpatient (BNVA) | payer MEDICARE, SELFPAY | PROVIDERS: Family Provider Family Medicine; PCP Family Medicine; Visit Provider Nurse Practitioner Family | DX: L82.1 Other seborrheic keratosis (principal); L57.0 Actinic keratosis; L82.0 Inflamed seborrheic keratosis; L57.8 Other skin changes due to chronic exposure to nonionizing radiation; L81.4 Other melanin hyperpigmentation | CPT/HCPCS: 17000; 17110; 99203 ==

== ENCOUNTER → 2023-06-10 11:55 | Outpatient (BNVA) | payer MEDICARE, SELFPAY | PROVIDERS: Family Provider Family Medicine; PCP Family Medicine; Visit Provider Family Medicine | DX: R07.9 Chest pain, unspecified (principal); I25.118 Atherosclerotic heart disease of native coronary artery with other forms of angina pectoris; I10 Essential (primary) hypertension; E78.2 Mixed hyperlipidemia; I87.2 Venous insufficiency (chronic) (peripheral) | CPT/HCPCS: 93005; 99214 ==

== ENCOUNTER → 2023-12-22 10:54 | Outpatient (BNVA) | payer MEDICARE, SELFPAY | PROVIDERS: Family Provider Family Medicine; PCP Family Medicine; Visit Provider Family Medicine | DX: I10 Essential (primary) hypertension (principal); E11.65 Type 2 diabetes mellitus with hyperglycemia; E78.2 Mixed hyperlipidemia; I25.10 Atherosclerotic heart disease of native coronary artery without angina pectoris | CPT/HCPCS: 80053; 80061; 83036; 85025 ==

== ENCOUNTER → 2023-12-30 11:14 | Outpatient (BNVA) | payer MEDICARE, SELFPAY | PROVIDERS: Family Provider Family Medicine; PCP Family Medicine; Visit Provider Internal Medicine Cardiovascular Disease | DX: I25.10 Atherosclerotic heart disease of native coronary artery without angina pectoris (principal); E78.2 Mixed hyperlipidemia; I10 Essential (primary) hypertension; I87.2 Venous insufficiency (chronic) (peripheral) | CPT/HCPCS: 99214 ==

== ENCOUNTER → 2024-01-06 10:21 | Outpatient (BNVA) | payer MEDICARE, SELFPAY | PROVIDERS: Family Provider Family Medicine; PCP Family Medicine; Visit Provider Nurse Practitioner Family | DX: L57.0 Actinic keratosis (principal); L82.0 Inflamed seborrheic keratosis; B35.1 Tinea unguium; L73.8 Other specified follicular disorders; L82.1 Other seborrheic keratosis; L81.4 Other melanin hyperpigmentation | CPT/HCPCS: 17000; 17110; 99214 ==

== ENCOUNTER → 2024-06-29 10:55 | Outpatient (BNVA) | payer MEDICARE, SELFPAY | PROVIDERS: Family Provider Family Medicine; PCP Family Medicine; Visit Provider Family Medicine | DX: E78.2 Mixed hyperlipidemia (principal); I10 Essential (primary) hypertension; I25.10 Atherosclerotic heart disease of native coronary artery without angina pectoris | CPT/HCPCS: 80053; 80061; 85025 ==

== ENCOUNTER → 2024-08-24 12:30 | Outpatient (BNVA) | payer MEDICARE, SELFPAY | PROVIDERS: Family Provider Family Medicine; PCP Family Medicine; Visit Provider Internal Medicine Cardiovascular Disease | DX: I25.118 Atherosclerotic heart disease of native coronary artery with other forms of angina pectoris (principal); E78.2 Mixed hyperlipidemia; I10 Essential (primary) hypertension; I87.2 Venous insufficiency (chronic) (peripheral) | CPT/HCPCS: 99214 ==

== ENCOUNTER → 2024-12-14 10:26 | Outpatient (BNVA) | payer MEDICARE, SELFPAY | PROVIDERS: Family Provider Family Medicine; PCP Family Medicine; Visit Provider Family Medicine | DX: I10 Essential (primary) hypertension (principal) | CPT/HCPCS: 85025 ==

== ENCOUNTER → 2025-01-04 10:35 | Outpatient (BNVA) | payer MEDICARE, SELFPAY | PROVIDERS: Family Provider Family Medicine; PCP Family Medicine; Visit Provider Nurse Practitioner Family | DX: L73.8 Other specified follicular disorders (principal); L21.8 Other seborrheic dermatitis; L82.0 Inflamed seborrheic keratosis; R20.8 Other disturbances of skin sensation; D48.5 Neoplasm of uncertain behavior of skin | CPT/HCPCS: 11102; 17110; 99214 ==